=== PATIENT | male | born 1975 | race Caucasian/White ===

== ENCOUNTER 2016-12-16 09:24 | Emergency (ER) | payer SELFPAY ==
[2016-12-16] MEDS ORDERED: ASPIRIN 81 MG TAB.CHEW ONE (09:37)
[2016-12-16] MEDS ORDERED: ASPIRIN 81 MG TAB.CHEW PO ONE (09:40)
[2016-12-16] MEDS ORDERED: NITROGLYCERIN 0.4 MG/TAB BTL SL ONE (09:41)
[2016-12-16 09:43] LABS: Hematocrit 46.9 % (42.0-52.0); Mean Cell Volume 88.8 fl (78-100); Mean Corpuscular Hemoglobin 30.3 pg (27-31); Mean Corpuscular Hgb Conc 34.1 g/dl (32-36); Mean Platelet Volume 10.1 fl (6.0-9.5); Neutrophil # 6.5 K/mm3 (1.3-6.0); Neutrophil % 65.3 % (42-75.0); Platelet Count 219 K/mm3 (150-450); Red Blood Count 5.28 M/mm3 (4.7-6.0); Red Cell Distribution Width 12.6 % (11.5-14.0); White Blood Count 9.9 K/mm3 (4.0-10.5)
[2016-12-16 09:54] LABS: Prothrombin Time (Patient) 10.6 Seconds (9.4-11.4)
[2016-12-16 10:01] LABS: ALT 24 U/L (19-67); AST 15 U/L (0-48); Albumin * 4.4 gm/dl (3.4-5.0); Alkaline Phosphatase * 69 U/L (50-170); Anion Gap 15.9 mmol/L (6.8-13.8); Bilirubin, Total 0.4 mg/dL (0.0-1.1); Blood Urea Nitrogen 10 mg/dL (6-23); Ca. Corrected For Albumin 9.2 mg/dL (8.4-10.2); Calcium * 9.8 mg/dL (7.9-10.9); Carbon Dioxide 25.9 mmol/L (24-32.6); Chloride 104 mmol/L (97-106); Glucose * 118 mg/dL (70-110); INR 1.02 INR (0.90-1.10); Partial Thrombolplastin Time 26.2 Seconds (24-32); Potassium 3.8 mmol/L (3.4-4.6); Sodium 142 mmol/L (132-142); Total Protein 7.9 gm/dL (6.2-8.2); Troponin I Less than 0.017 ng/ml (0.00-0.10)
[2016-12-16] MEDS ORDERED: ALPRAZolam 0.25 MG TABLET PO ONE (10:09)
[2016-12-16] MEDS ORDERED: ALPRAZolam 0.25 MG TABLET ONE (10:12)
--- NOTE | 2016-12-16 10:16 | ERNOTE ---
Chest Pain/Cardiac HPI Date of Service: 12/16/16 Chief Complaint: Chest Pain Time Seen by Provider: 12/16/16 09:54 Source: patient Exam Limitations: no limitations Immunizations: IMMUNIZATION HX History of Influenza Vaccine No Hx Pneumococcal Vaccination No Allergies/Adverse Reactions: Allergies codeine Allergy (Verified 12/16/16 09:36) Home Medications: HOME MEDICATIONS Naproxen [Naprosyn] 500 mg PO BID PRN #60 tab 12/16/16 [Last Taken Unknown] Narrative: Pt. comes in with c/o chest pain that started last night in [facility] chest worse with palpation. Pt. states taht he has COPD untreated with medications and SOB worse recently as well as worse cough than recent. Pt. denies any NVD, rhinorrhea, but does state that he has some nausea and vomiting. 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 Review of Systems - Review of Systems Constitutional: Present: no symptoms reported. Absent: recent illness, fever, chills, weakness, fatigue, malaise EYE: Present: no symptoms reported ENT: Present: no symptoms reported Respiratory: Present: shortness of breath, cough. Absent: wheezing Cardiology: Present: chest pain - BUOL 1st IC space Gastrointestinal/Abdominal: Present: nausea, vomiting Genitourinary: Present: no symptoms reported Musculoskeletal: Present: no symptoms reported. Absent: back pain, joint pain Skin: Present: no symptoms reported Neurological: Present: no symptoms reported. Absent: headache, dizziness/light- headedness, numbness, tingling All Other Systems: All systems neg except as marked - Patient's Past Medical History Patient History - Medical: No pertinent hx Patient History - Cardiac/Respiratory: COPD Patient History - Cancer: No Hx of Cancer - Social History Living Situations: home Smoking Status: Current every day smoker - Immunizations Hx Pneumococcal Vaccination: No History of Influenza Vaccine: No Physical Exam - Physical Exam General Appearance: Present: wd/wn, alert, no apparent distress Eye Exam: Normal inspection: bilateral, PERRL: bilateral, EOMI: bilateral Ears, Nose, Throat: Present: normal ENT inspection, hearing grossly normal, normal pharynx Neck: Present: normal inspection, nontender. Absent: lymphadenopathy (R), lymphadenopathy (L) Respiratory: Present: no respiratory distress, normal breath sounds, no accessory muscle use, lungs clear, chest tenderness - B 1st IC space and 2nd IC space, other - tachypnea Cardiovascular/Chest: Present: regular rate, rhythm, no murmur, normal peripheral pulses Back Exam: Present: normal inspection, normal range of motion, no CVA tenderness , no vertebral tenderness Neurological Exam: Present: alert, oriented, normal mood/affect, no motor/ sensory deficits Skin Exam: Present: normal color, warm/dry. Absent: pallor, skin rash ED Progress - Results and Orders Patient's Lab Results:: I have reviewed the patient's lab results. - Vital Signs Patient's Vital Signs:: I have reviewed the patient's vital signs. Vital Signs: Vital Signs 12/16/16 09:29 Temperature 36.5 C Pulse Rate 79 Respiratory 18 Rate Blood Pressure 120/81 O2 Sat by Pulse 100 Oximetry - X-Ray X-Ray #1 X-Ray: chest Interpretation: Interp. by me X-ray Comments: no acute but with bronchial cuffing. - Progress/Reassessment Chief Complaint: Chest Pain Progress:: Unchanged Departure - Departure Clinical Impression: Costochondral chest pain, Anxiety COPD (chronic obstructive pulmonary disease) Qualifiers: COPD type: emphysema Emphysema type: panlobular Qualified Code(s): J43.1 - Panlobular emphysema Disposition: Home self-care Condition: Good Instructions: Costochondritis, [id number] Additional Instructions: Please follow up with primary provider in 2-3 cdays. Please take medicines for pain. Prescriptions: Naproxen [Naprosyn] 500 mg PO BID PRN #60 tab PRN Reason: Pain
[2016-12-16] MEDS ORDERED: KETOROLAC TROMETHAMINE 60 MG/2 ML VIAL IM ONE (10:19)
[2016-12-16] MEDS ORDERED: KETOROLAC TROMETHAMINE 30 MG/ML VIAL ONE (10:26)
[2016-12-16] MEDS ORDERED: KETOROLAC TROMETHAMINE 30 MG/ML VIAL IV ONE (10:28)
[2016-12-16 11:23] VITALS: BP 117/97
== END 2016-12-16 11:00 | disposition home or self-care (01) ==
LOC: ER 09:24
DX: R07.89 Other chest pain (principal); F41.9 Anxiety disorder, unspecified; J43.1 Panlobular emphysema; Z72.0 Tobacco use